=== PATIENT | female | born 1985 | race American Indian/Alaskan Native ===

== ENCOUNTER 2018-01-29 19:23 | Inpatient (IN) | payer MEDICARE, OTHER ==
[2018-01-29] MEDS ORDERED: BENADRYL IV ONE (19:30)
[2018-01-29] MEDS ORDERED: ADRENALIN IV ONE (19:30)
[2018-01-29] MEDS ORDERED: PEPCID IV ONE ×2 (19:30→19:32)
[2018-01-29] MEDS ORDERED: BENADRYL ONE (19:32)
[2018-01-29] MEDS ORDERED: ADRENALIN ONE (19:32)
[2018-01-29] MEDS ORDERED: NACL 0.9% 1000 ML 1,000 ML ONE ×3 (19:32→21:01)
[2018-01-29] MEDS ORDERED: ZOFRAN ONE (19:38)
[2018-01-29] MEDS ORDERED: PROVENTIL IH ONE ×2 (19:42→19:50)
--- NOTE | 2018-01-29 19:47 | Emergency Department Report ---
ED Allergic Reaction HPI - General Stated complaint: ALLERGIC REACTION Time Seen by Provider: 01/29/18 19:38 - History of Present Illness Initial Comments: Patient is 33 years old female with no significant past medical history except 3 weeks ago when she had acute allergic reaction that required intubation and admission to [place] ICU. Patient brought by EMS for evaluation of sudden onset of allergic reaction that happened after she started eating at one of the restaurant. Patient presented with generalized hives and itching. Patient denied any shortness of breath, difficulty swallowing or difficulty breathing. MD Complaint: allergic reaction, hives Symptoms: rash, itching Severity: moderate Treatment Prior to Arrival: benadryl, steroids - Related Data Allergies Allergy/AdvReac Type Severity Reaction Status Date / Time mushroom AdvReac Hives Verified 01/29/18 19:55 ED Review of Systems ROS: Stated complaint: ALLERGIC REACTION Other details as noted in HPI Comment: All other systems reviewed and negative Constitutional: denies: chills, diaphoresis Respiratory: denies: cough, orthopnea, shortness of breath, SOB with exertion Cardiovascular: palpitations. denies: chest pain, dyspnea on exertion Gastrointestinal: denies: abdominal pain, nausea, vomiting, diarrhea, constipation, hematemesis, hematochezia Skin: rash, pruritus Neurological: denies: headache, weakness ED Physical Exam - General Limitations: No Limitations General appearance: alert, in no apparent distress, anxious - Head Head exam: Present: atraumatic, normocephalic, normal inspection - Eye Eye exam: Present: normal appearance, PERRL Pupils: Present: normal accommodation - ENT ENT exam: Present: normal exam, normal orophraynx, mucous membranes moist - Neck Neck exam: Present: normal inspection, full ROM. Absent: tenderness, meningismus, lymphadenopathy, thyromegaly - Respiratory Respiratory exam: Present: normal lung sounds bilaterally. Absent: respiratory distress, wheezes, rales, rhonchi, chest wall tenderness, accessory muscle use, decreased breath sounds, prolonged expiratory - Cardiovascular Cardiovascular Exam: Present: regular rate, normal rhythm, normal heart sounds - GI/Abdominal GI/Abdominal exam: Present: soft, normal bowel sounds. Absent: distended, tenderness, guarding, rebound, rigid, organomegaly, mass, bruit, pulsatile mass , hernia - Extremities Exam Extremities exam: Present: normal inspection, full ROM, normal capillary refill - Back Exam Back exam: Present: normal inspection, full ROM. Absent: tenderness, CVA tenderness (R), CVA tenderness (L), muscle spasm, paraspinal tenderness - Neurological Exam Neurological exam: Present: alert, oriented X3, CN II-XII intact, normal gait - Skin Skin exam: Present: warm, intact, rash, urticaria ED Course Vital Signs 01/29/18 01/29/18 01/29/18 19:30 19:51 19:53 Temperature 99.1 F Pulse Rate 142 H 142 H Pulse Rate [ Anterior Bilateral Throughout] Respiratory 18 Rate Respiratory Rate [Anterior Bilateral Throughout] Blood Pressure 155/84 O2 Sat by Pulse 97 Oximetry 01/29/18 20:09 Temperature Pulse Rate Pulse Rate [ 111 H Anterior Bilateral Throughout] Respiratory Rate Respiratory 17 Rate [Anterior Bilateral Throughout] Blood Pressure O2 Sat by Pulse Oximetry ED Medical Decision Making - Lab Data Result diagrams: 01/29/18 19:46 01/29/18 19:46 - Medical Decision Making I discussed the patient with Dr. Marilou Cortes, she agreed to admit the patient to her service. Critical care attestation.: If time is entered above; I have spent that time in minutes in the direct care of this critically ill patient, excluding procedure time. ED Disposition Clinical Impression: Acute allergic reaction Disposition: OP ADMIT IP TO THIS HOSP Is pt being admited?: Yes Condition: Stable
[2018-01-29 20:23] LABS: Hematocrit 41.7 % (30.3-42.9); Hemoglobin 13.5 gm/dl (10.1-14.3); Mean Corpuscular HGB Conc 33 % (30-34); Mean Corpuscular Hemoglobin 28 pg (28-32); Mean Corpuscular Volume 85 fl (79-97); Platelet Count 276 K/mm3 (140-440); Red Blood Count 4.93 M/mm3 (3.65-5.03); Red Cell Distribution Width 14.2 % (13.2-15.2)
[2018-01-29 20:35] LABS: Calcium 8.2 mg/dL (8.4-10.2)
[2018-01-29] MEDS ORDERED: NACL 0.9% 1000 ML 1,000 ML IV ONE ×2 (20:55→21:06)
[2018-01-29 21:07] LABS: Basophils % (Manual) 0 % (0.0-1.8); Total Cells Counted 100
[2018-01-29 21:08] LABS: Anisocytosis 1+; Platelet Estimate Consistent w Auto; Poikilocytosis 1+
[2018-01-29] MEDS ORDERED: ZOFRAN IV PRN (21:50)
[2018-01-29] MEDS ORDERED: TYLENOL PO PRN (21:50)
[2018-01-29] MEDS ORDERED: SODIUM CHLORIDE FLUSH SYRINGE 10 ML IV PRN (21:50)
--- NOTE | 2018-01-29 21:52 | History and Physical Report ---
History of Present Illness Date of examination: 01/29/18 History of present illness: 33-year-old woman with no medical problems comes emergency room with complaints of swelling of her face and hives on her entire body after eating pizza. Stated that 2 week ago she was admitted at [facility] for acute allergic reaction after eating pizza, she was intubated secondary to her throat closing up. She was discharged on EpiPen but has not purchased the medication Review of systems Constitutional: no weight loss, chills Ears, eyes, nose, mouth and throat: no nasal congestion, no nasal discharge, no sinus pressure, no vision change, no red eye. Neck: No neck pain or rigidity. Cardiovascular: no chest pain, palpitations Respiratory: No cough, shortness of breath Gastrointestinal: no abdominal pain, hematochezia Genitourinary : no dysuria, frequency , no hematuria Musculoskeletal: no joint swelling or muscle ache Integumentary: no rash, no pruritis Neurological: no parathesias, no numbness, no focal weakness Endocrine: no cold or heat intolerance, no polyuria or polydipsia Hematologic/Lymphatic: no easy bruising, no easy bleeding, no gland swelling Allergic/Immunologic: no urticaria, no angioedema. PAST MEDICAL HISTORY:None PAST SURGICAL HISTORY: None SOCIAL HISTORY: Cocaine use, last use was 5 days ago, no tobacco or alcohol FAMILY HISTORY: Hypertension Medications and Allergies Allergies Allergy/AdvReac Type Severity Reaction Status Date / Time mushroom AdvReac Hives Verified 01/29/18 19:55 Home Medications Medication Instructions Recorded Confirmed Last Taken Type Mv-Mins/Folic Acid/Guarana/Caf 1 each PO DAILY 01/29/18 01/29/18 Unknown History [One Daily Tablet] Active Meds: Active Medications Sodium Chloride (Nacl 0.9% 1000 Ml) 1,000 mls @ 999 mls/hr IV BOLUS ONE Stop: 01/29/18 22:06 Last Admin: 01/29/18 21:07 Dose: 999 mls/hr Sodium Chloride (Nacl 0.9% 1000 Ml) 1,000 mls @ 999 mls/hr IV BOLUS ONE Stop: 01/29/18 21:55 Last Admin: 01/29/18 21:00 Dose: 999 mls/hr Exam - Physical Exam Narrative exam: Gen. appearance: Patient lying in bed, no apparent distress HEENT: Normocephalic, atraumatic, pupils equally round and reactive to light, extraocular movement intact, and no sclericterus,. No JVD or thyromegaly or nodule,neck supple, no carotid bruit ,mucous membranes moist, no exudate or erythema Heart: S1, S2, regular rate and rhythm Lungs: Clear to auscultation bilaterally, breathing comfortable Abdomen: Positive bowel sounds, nontender, nondistended, no organomegaly Extremity: No edema, cyanosis, clubbing Skin: + hives diffusely on arms, legs, back, No rash, nodules, warm, dry Neuro: Oriented 3, cranial nerves II-12 intact, speech is fluent, motor and sensory intact - Constitutional Vitals: Temp Pulse Resp BP Pulse Ox 99.1 F 111 H 17 155/84 97 01/29/18 19:30 01/29/18 20:09 01/29/18 20:09 01/29/18 19:30 01/29/18 19:30 Results - Labs CBC & Chem 7: 01/29/18 19:46 01/29/18 19:46 Labs: Abnormal lab results 01/29/18 01/29/18 Range/Units 19:46 19:46 WBC 12.5 H (4.5-11.0) K/mm3 Lymphocytes % (Manual) 55.0 H (13.4-35.0) % Lymphocytes # (Manual) 6.9 H (1.2-5.4) K/mm3 Potassium 2.8 L* (3.6-5.0) mmol/L Glucose 107 H (65-100) mg/dL Calcium 8.2 L (8.4-10.2) mg/dL Assessment and Plan Assessment Acute allergic reaction Hypokalemia Plan Admit to medicine Started on IV steroids, Pepcid, Benadryl, IV fluids Replete potassium, DVT prophylaxis Addendum Nurses report that patient is having chest pain, check heart enzymes
[2018-01-29] MEDS ORDERED: PEPCID IV SCH (22:00)
[2018-01-29] MEDS ORDERED: SODIUM CHLORIDE FLUSH SYRINGE 10 ML IV SCH (22:00)
[2018-01-29] MEDS ORDERED: K-DUR PO ONE (22:19)
[2018-01-29] MEDS: BENADRYL IV SCH (22:39)
[2018-01-30] MEDS: PERCOCET 5/325 PO PRN ×2 (01:17→06:07)
[2018-01-30 02:16] LABS: Creatine Kinase MB 1.5 ng/mL (0.0-4.0)
[2018-01-30] MEDS: BENADRYL IV SCH (04:06)
[2018-01-30 06:52] LABS: Hematocrit 37.4 % (30.3-42.9); Mean Corpuscular HGB Conc 32 % (30-34); Mean Corpuscular Hemoglobin 27 pg (28-32); Mean Corpuscular Volume 85 fl (79-97); Platelet Count 225 K/mm3 (140-440); Red Blood Count 4.42 M/mm3 (3.65-5.03); Red Cell Distribution Width 14.2 % (13.2-15.2)
[2018-01-30 07:15] LABS: BUN/Creatinine Ratio 14; Blood Urea Nitrogen 11 mg/dL (7-17); Calcium 8.3 mg/dL (8.4-10.2); Creatine Kinase MB 1.8 ng/mL (0.0-4.0); Hemolysis Index 3
[2018-01-30 08:26] VITALS: BP 98/54
[2018-01-30 08:58] LABS: Band Neutrophils # (Manual) 2.4 K/mm3; Basophils % (Manual) 0 % (0.0-1.8); Eosinophils % (Manual) 0 % (0.0-4.3); RBC Morphology Normal; Total Cells Counted 100
[2018-01-30 08:59] LABS: Platelet Estimate Consistent w Auto
[2018-01-30] MEDS ORDERED: LOVENOX SUB-Q SCH (10:00)
--- NOTE | 2018-01-30 10:09 | Discharge Summary ---
Providers - Providers Date of Admission: 01/29/18 21:50 Attending physician: JOSÉ ANTONIO WYNN Primary care physician: JOSÉ ANTONIO FLEMING Hospitalization Condition: Stable Exam - Constitutional Vitals: Temp Pulse Resp BP Pulse Ox 98.6 F 92 H 20 98/54 100 01/30/18 07:16 01/30/18 07:16 01/30/18 07:16 01/30/18 07:16 01/30/18 08:43 Plan Follow up with: JOSÉ ANTONIO FLEMING MD [Primary Care Provider] - 3-5 Days Forms: AMA Form
[2018-01-30] MEDS ORDERED: Fluarix Quad 2017-2018(36 MOS+ IM ONE (12:00)
== END 2018-01-30 09:12 | disposition left against medical advice (07) | DRG 607 ==
LOC: ED 19:23 → 4A 21:50
PROVIDERS: ADMIT Internal Medicine; ATTEND Internal Medicine
PROC: 3E0234Z Introduction of Serum, Toxoid and Vaccine into Muscle, Percutaneous Approach (ICD-10-PCS; principal; 2018-01-30)
DX: R22.0 Localized swelling, mass and lump, head (principal); E87.6 Hypokalemia; R07.9 Chest pain, unspecified; T78.1XXA Other adverse food reactions, not elsewhere classified, initial encounter; Z23 Encounter for immunization; Z82.49 Family history of ischemic heart disease and other diseases of the circulatory system
CPT/HCPCS: 36415; 80048; 82550; 82553; 83735; 84100; 84484; 85007; 85025; 90686; 93005; 93010; 94640; 96374; 96375; J0171; J1200; J2405; J2930; J7030